=== PATIENT | female | born 1965 | race Caucasian/White ===

== ENCOUNTER 2017-03-20 23:22 | Inpatient (IN) | payer OTHER ==
[~2017-03-20] VITALS: Ht 170.2 cm; Wt 122.5 kg
[2017-03-21 00:55] LABS: HEMOGLOBIN 13.6 gm/dl (12.3-15.3); RED BLOOD COUNT 4.6 M/UL (4.00-5.10); WHITE BLOOD COUNT 15.3 K/UL (4.5-11.0)
[2017-03-21 01:34] LABS: BUN/CREATININE RATIO 19 (0-10)
[2017-03-21 07:55] LABS: BUN/CREATININE RATIO 22 (0-10)
[2017-03-21] MEDS ORDERED: NEURONTIN 400400 MG PO (10:42)
[2017-03-21] MEDS ORDERED: LORTAB 5-325 M1 EACH PO (10:43)
[2017-03-21] MEDS ORDERED: ELAVIL 50 MG TA50 MG PO (10:43)
[2017-03-21] MEDS ORDERED: VITAMIN B-1000 MCG/M IM (10:44)
[2017-03-21] MEDS ORDERED: CELEBREX200 MG PO (10:44)
[2017-03-21] MEDS ORDERED: SYNTHROID75 MCG PO (10:45)
[2017-03-21] MEDS ORDERED: GLUCOTROL 10 MG10 MG PO (10:45)
[2017-03-21] MEDS ORDERED: FENOFIBRATE145 MG PO (10:45)
[2017-03-21] MEDS ORDERED: GLUCOPHAGE1000 MG PO (10:46)
[2017-03-21] MEDS ORDERED: ZESTRIL20 MG PO (10:46)
[2017-03-21] MEDS ORDERED: METOPROLOL TART50 MG PO (10:47)
[2017-03-21] MEDS ORDERED: ZANTAC300 MG PO (10:48)
[2017-03-21] MEDS ORDERED: ZANAFLEX 4 MG TA4 MG PO (10:48)
[2017-03-21] MEDS ORDERED: VASCEPA1 GM PO (10:49)
[2017-03-21] MEDS ORDERED: NOVOLIN N100 UNIT/1 SQ (10:49)
[2017-03-21] MEDS ORDERED: CRESTOR40 MG PO (10:50)
[2017-03-21] MEDS ORDERED: VITAMIN D250000 UNIT PO (10:50)
[2017-03-21] MEDS ORDERED: HUMULIN R100 UNIT/1 SQ (10:51)
[2017-03-21] MEDS ORDERED: DULOXETINE HCL60 MG PO (10:52)
[2017-03-21] MEDS ORDERED: HYDROCHLOROTHIA25 MG PO (10:52)
[2017-03-21] MEDS ORDERED: ECOTRIN81 MG PO (10:53)
[2017-03-21 12:20] LABS: BUN/CREATININE RATIO 17 (0-10)
[2017-03-21 17:54] LABS: BUN/CREATININE RATIO 10 (0-10)
[2017-03-21 22:02] LABS: BUN/CREATININE RATIO 10 (0-10)
[2017-03-22 01:46] LABS: BUN/CREATININE RATIO 11 (0-10)
[2017-03-22 05:00] LABS: HEMOGLOBIN 12.3 gm/dl (12.3-15.3); RED BLOOD COUNT 4.27 M/UL (4.00-5.10)
[2017-03-22 05:15] LABS: BUN/CREATININE RATIO 15 (0-10)
[2017-03-23 04:31] LABS: HEMOGLOBIN 11.1 gm/dl (12.3-15.3); RED BLOOD COUNT 3.9 M/UL (4.00-5.10)
[2017-03-23 04:36] LABS: WHITE BLOOD COUNT 11.3 K/UL (4.5-11.0)
[2017-03-23 12:27] LABS: HEMOGLOBIN 10.2 gm/dl (12.3-15.3); RED BLOOD COUNT 3.53 M/UL (4.00-5.10); WHITE BLOOD COUNT 8.4 K/UL (4.5-11.0)
[2017-03-24 03:34] LABS: HEMOGLOBIN 10.9 gm/dl (12.3-15.3); RED BLOOD COUNT 3.78 M/UL (4.00-5.10); WHITE BLOOD COUNT 6.9 K/UL (4.5-11.0)
[2017-03-24 03:56] LABS: BUN/CREATININE RATIO 14 (0-10)
[2017-03-25 04:21] LABS: HEMOGLOBIN 11.4 gm/dl (12.3-15.3); RED BLOOD COUNT 3.96 M/UL (4.00-5.10); WHITE BLOOD COUNT 6.6 K/UL (4.5-11.0)
[2017-03-25 04:37] LABS: BUN/CREATININE RATIO 19 (0-10)
[2017-03-26 05:58] LABS: HEMOGLOBIN 12.4 gm/dl (12.3-15.3); RED BLOOD COUNT 4.33 M/UL (4.00-5.10); WHITE BLOOD COUNT 7.3 K/UL (4.5-11.0)
[2017-03-26 06:17] LABS: BUN/CREATININE RATIO 29 (0-10)
[2017-03-26] MEDS ORDERED: DIFLUCAN100 MG PO (13:13)
[2017-03-26] MEDS ORDERED: CEFUROXIME500 MG PO (13:15)
[2017-03-26] MEDS ORDERED: SENOKOT-S TABL1 EACH PO (13:16)
[2017-05-16] MEDS ORDERED: ZOFRAN 8 MG TAB8 MG PO (01:13)
[2017-05-16] MEDS ORDERED: HYDROCHLOROTHIA25 MG PO (01:14)
[2017-05-16] MEDS ORDERED: TOPROL XL200 MG PO (01:14)
[2017-05-16] MEDS ORDERED: ZANTAC300 MG PO (01:15)
[2017-05-16] MEDS ORDERED: GLUCOPHAGE1000 MG PO (01:15)
[2017-05-16] MEDS ORDERED: NIACIN ER500 MG PO (01:16)
[2017-05-16] MEDS ORDERED: CELEBREX200 MG PO (01:17)
[2017-05-16] MEDS ORDERED: BUSPAR 10MG10 MG PO (01:18)
[2017-05-16] MEDS ORDERED: SYNTHROID50 MCG PO (01:18)
[2017-05-16] MEDS ORDERED: GLUCOTROL 10 MG10 MG PO (01:19)
[2017-05-16] MEDS ORDERED: HUMULIN R100 UNIT/1 SC (01:20)
[2017-05-16] MEDS ORDERED: NOVOLIN N100 UNIT/1 SC (01:20)
[2017-05-16] MEDS ORDERED: ZANAFLEX4 M1 PO (01:21)
[2017-05-16] MEDS ORDERED: AMITRIPTYLINE150 MG PO (01:21)
[2017-05-16] MEDS ORDERED: WELLBUTRIN XL150 MG PO (01:22)
[2017-05-16] MEDS ORDERED: NORCO 5-325 TA1 EACH PO (01:22)
[2017-05-16] MEDS ORDERED: NEURONTIN 400400 MG PO (01:23)
[2017-05-16] MEDS ORDERED: VITAMIN D250000 UNIT PO (01:28)
[2017-05-16] MEDS ORDERED: VITAMIN D2000 UNIT PO (01:29)
[2017-05-16] MEDS ORDERED: VITAMIN B-1000 MCG/M IM (01:30)
== END 2017-03-26 15:10 | disposition home or self-care (01) | DRG 871 ==
LOC: ER1 23:22 → M/S 03-21 03:31 → ZEROF 03-21 03:31 → CCU 03-21 03:31 → M/S 03-25 14:52
PROVIDERS: Emergency Medicine; Internal Medicine; Internal Medicine Critical Care Medicine; Internal Medicine Infectious Disease; ADMIT Family Medicine
PROC: 06HM33Z Insertion of Infusion Device into Right Femoral Vein, Percutaneous Approach (ICD-10-PCS; principal; 2017-03-22)
PROC: B54BZZA Ultrasonography of Right Lower Extremity Veins, Guidance (ICD-10-PCS; 2017-03-22)
DX: A41.9 Sepsis, unspecified organism (principal); R65.21 Severe sepsis with septic shock; K85.90 Acute pancreatitis without necrosis or infection, unspecified; E13.10 Other specified diabetes mellitus with ketoacidosis without coma; K86.1 Other chronic pancreatitis; N30.00 Acute cystitis without hematuria; Z68.41 Body mass index [BMI] 40.0-44.9, adult; E87.1 Hypo-osmolality and hyponatremia; N17.9 Acute kidney failure, unspecified; B96.20 Unspecified Escherichia coli [E. coli] as the cause of diseases classified elsewhere; E66.01 Morbid (severe) obesity due to excess calories; E03.9 Hypothyroidism, unspecified; E78.4 Other hyperlipidemia; E78.1 Pure hyperglyceridemia; M06.9 Rheumatoid arthritis, unspecified; E11.40 Type 2 diabetes mellitus with diabetic neuropathy, unspecified; M79.7 Fibromyalgia; Z79.82 Long term (current) use of aspirin; Z79.84 Long term (current) use of oral hypoglycemic drugs; Z79.1 Long term (current) use of non-steroidal anti-inflammatories (NSAID); Z79.4 Long term (current) use of insulin; Z79.891 Long term (current) use of opiate analgesic; Z79.899 Other long term (current) drug therapy; Z90.710 Acquired absence of both cervix and uterus; Z90.49 Acquired absence of other specified parts of digestive tract; Z98.890 Other specified postprocedural states; Z83.3 Family history of diabetes mellitus; Z82.49 Family history of ischemic heart disease and other diseases of the circulatory system
CPT/HCPCS: 36415; 36600; 71010; 74022; 80048; 80053; 80061; 81001; 82009; 82150; 82550; 82553; 82803; 82962; 83036; 83605; 83690; 83735; 83874; 83880; 84443; 84484; 85025; 85027; 85379; 85610; 85730; 87040; 87077; 87086; 87186; 96361; 96372; 96374; 96375; 99285; C1751; C9113; J0696; J1265; J1815; J1956; J2270; J2405; J2550; J3420; J3475; J7030; J7040; J7050; Q9962

== ENCOUNTER → 2021-09-05 | Outpatient (CLI) | payer OTHER ==
[~2021-09-05] MED LIST: AMITRIPTYLINE150 MG PO; BUSPAR 10MG10 MG PO; CEFUROXIME500 MG PO; CELEBREX200 MG PO; CRESTOR40 MG PO; DIFLUCAN100 MG PO; DULOXETINE HCL60 MG PO; ECOTRIN81 MG PO; ELAVIL 50 MG TA50 MG PO; FENOFIBRATE145 MG PO; GLUCOPHAGE1000 MG PO; GLUCOTROL 10 MG10 MG PO; HUMULIN R100 UNIT/1 SC; HUMULIN R100 UNIT/1 SQ; HYDROCHLOROTHIA25 MG PO; LORTAB 5-325 M1 EACH PO; METOPROLOL TART50 MG PO; NEURONTIN 400400 MG PO; NIACIN ER500 MG PO; NORCO 5-325 TA1 EACH PO; NOVOLIN N100 UNIT/1 SC; NOVOLIN N100 UNIT/1 SQ; SENOKOT-S TABL1 EACH PO; SYNTHROID50 MCG PO; SYNTHROID75 MCG PO; TOPROL XL200 MG PO; VASCEPA1 GM PO; VITAMIN B-1000 MCG/M IM; VITAMIN D2000 UNIT PO; VITAMIN D250000 UNIT PO; WELLBUTRIN XL150 MG PO; ZANAFLEX 4 MG TA4 MG PO; ZANAFLEX4 M1 PO; ZANTAC300 MG PO; ZESTRIL20 MG PO; ZOFRAN 8 MG TAB8 MG PO
== END ==
LOC: KOH-I 13:34
DX: M48.061 Spinal stenosis, lumbar region without neurogenic claudication (principal); M47.816 Spondylosis without myelopathy or radiculopathy, lumbar region; M51.36 Other intervertebral disc degeneration, lumbar region; M51.37 Other intervertebral disc degeneration, lumbosacral region; M25.552 Pain in left hip; M25.551 Pain in right hip
CPT/HCPCS: 72148